=== PATIENT | female | born 1970 | race Caucasian/White ===

== ENCOUNTER 2020-05-24 20:50 | Inpatient (IN) | payer BC, SELFPAY ==
[~2020-05-24] VITALS: Ht 157.5 cm; Wt 81.6 kg
[2020-05-24 20:50] VITALS: BP 129/50
--- NOTE | 2020-05-24 20:50 | NUR ---
PT BIBA TO BED 05.
--- NOTE | 2020-05-24 20:55 | NUR ---
50 YO F BIBA WITH C/C OF SOB. EMT STATED O2 SAT AT 75% ON RA, THEY PLACED PT ON NONREBREATHER 15L, O2 SAT IN 90S. PT WAS TOLD SHE WAS COVID + 3DAYS AGO PER PT. PT STATED SHE HAD LIPO IN [place] [facility] ON . PT DENIES PAIN. +SORENESS DUE TO SURGERY. PT HAS A NONPROD COUGH, -FEVER, -CHILLS. PT PLACED IN GOWN, ON ELECTRIC ORGAN INSPECTOR AND REPAIRER AND PULSE OX. BED LOCKED IN LOWEST POSITION, SIDE RAILS X2. HX: HTN RX:CELEXA, METOPROLOL NKA
[2020-05-24 22:01] LABS: EOSINOPHILS % (AUTO) 0.2 % (0.0-4.0); HEMATOCRIT 26.2 % (36-48); HEMOGLOBIN 8.9 g/dL (12.0-16.0); LYMPHOCYTES # (AUTO) 0.4 K/uL (2.5-16.5); LYMPHOCYTES % (AUTO) 5.2 % (20.5-51.1); MEAN CORPUSCULAR HEMOGLOBIN 27 pg (27-31); MEAN CORPUSCULAR HGB CONC 34 g/dL (33-37); MEAN CORPUSCULAR VOLUME 79.3 fL (80-94); MONOCYTES # (AUTO) 0.2 K/uL (0.8-1.0); MONOCYTES % (AUTO) 2.5 % (1.7-9.3); NEUTROPHILS # (AUTO) 6.9 K/uL (1.8-7.7); NEUTROPHILS % (AUTO) 92.1 % (42.2-75.2); PLATELET COUNT (AUTO) 233 K/uL (140-450); WHITE BLOOD COUNT (AUTO) 7.5 K/uL (4.8-10.8)
[2020-05-24 22:20] LABS: ALBUMIN 2.2 g/dL (3.4-5.0); ANION GAP 10.6 (8-16); CARBON DIOXIDE 29.2 mmol/L (21-32); CREATININE 0.8 mg/dL (0.6-1.3); POTASSIUM 3.8 mmol/L (3.5-5.1); TOTAL BILIRUBIN 0.7 mg/dL (0.0-1.0)
--- NOTE | 2020-05-24 22:30 | NUR ---
PT IN STABLE CONDITION, EQUAL RISE AND FALL OF CHEST WALL. ATTEMPTED TO WEAN PT OFF O2, PT REFUSED STATED SHE IS SOB AND CANNOT HANDLE IT. PT IS SATING AT 97. BED LOCKED IN LOWEST POSITION, SIDE RAILS X2. PT ON GREASE REFINER OPERATOR AND PULSE OX.
[2020-05-25] MEDS ORDERED: DEXAMETHASONE 4 MG/ML VIAL IVP ONE (00:05)
--- NOTE | 2020-05-25 00:10 | NUR ---
ASSISTED PT TO BED SIDE COMMODE, PT DESATS DURING MOVEMENT TO 89%, RISES WHEN PT IS SITTING CALMLY TO 96%. ERMD MADE AWARE. ASSISTED PT BACK TO BED. ALL PT NEEDS MET AT THIS TIME. BED LOCKED IN LOWEST POSITION, SIDE RAILS X2. PT IN STABLE CONDITION.
--- NOTE | 2020-05-25 02:20 | NUR ---
PT IN STABLE CONDITION, EQUAL RISE AND FALL OF CHEST WALL. PT IS SLEEPING. ALL PT NEEDS MET AT THIS TIME. BED LOCKED IN LOWEST POSITION, SIDE RAILS X2. PT IN STABLE CONDITION.
[2020-05-25] MEDS ORDERED: PANTOPRAZOLE 40 MG TABEC PO ONE (02:55)
--- NOTE | 2020-05-25 04:15 | NUR ---
PT IS SLEEPING IN STABLE CONDITION, EQUAL RISE AND FALL OF CHEST WALL. ALL PT NEEDS MET AT THIS TIME. BED LOCKED IN LOWEST POSITION, SIDE RAILS X2.
--- NOTE | 2020-05-25 06:10 | NUR ---
ASSISTED PT TO BEDSIDE COMMODE AND BACK TO BED. ALL PT NEEDS MET AT THIS TIME. BED LOCKED IN LOWEST POSITION, SIDE RAILS X2. PT IN STABLE CONDITION.
[2020-05-25] MEDS ORDERED: ALBUTEROL HFA MDI 90 MCG/ACTUATION 8 GM INH ONE (06:25)
[2020-05-25] MEDS ORDERED: AZITHROMYCIN 250 MG TAB PO ONE (06:25)
[2020-05-25] MEDS ORDERED: cefTRIAXone 1,000 MG in LIDOCAINE MPF 1% 2.1 ML IM ONE (06:25)
[2020-05-25] MEDS ORDERED: cefTRIAXone 1,000 MG VIAL ONE ×2 (06:27→10:54)
[2020-05-25] MEDS ORDERED: LIDOCAINE MPF 1% 5 ML ONE (06:28)
[2020-05-25] MEDS ORDERED: METO50TE2 PO (07:03)
[2020-05-25] MEDS ORDERED: CITA20TA15 PO (07:03)
--- NOTE | 2020-05-25 07:10 | NUR ---
Recieved report from José Luis LACY. José Luis recieved auth#[id number] for admission. Verified with admitting pt to be admitted here. On-call attending contacted at this time.
--- NOTE | 2020-05-25 07:15 | NUR ---
REPORT GIVEN TO PALMIRA BUSTILLO. TRANSFER OF CARE AT THIS TIME.
[2020-05-25] MEDS ORDERED: AZITHROMYCIN 250 MG in DEXTROSE 5% 250 ML IV SCH (08:05)
[2020-05-25] MEDS: NACL 0.9% 1,000 ML IV SCH (09:00)
[2020-05-25] MEDS: ZINC SULF 220 MG CAP PO SCH ×2 (09:00→21:00)
[2020-05-25] MEDS ORDERED: LOVENOX 1MG/KG Q12H SUBQ SCH (09:00)
[2020-05-25] MEDS ORDERED: ONDANSETRON 4 MG/2 ML VIAL IM/IVP PRN (09:00)
[2020-05-25] MEDS: VITAMIN D 400 IU TAB PO SCH (09:00)
[2020-05-25] MEDS ORDERED: MORPHINE SULFATE 2 MG/ML SYR IVP PRN (09:00)
[2020-05-25] MEDS: ASCORBIC ACID 500 MG TAB PO SCH (09:00)
[2020-05-25] MEDS ORDERED: POTASSIUM CHLORIDE 10 MEQ TABER PO PRN (09:00)
[2020-05-25] MEDS ORDERED: ALBUTEROL HFA MDI 90 MCG/ACTUATION 8 GM INH PRN (09:00)
[2020-05-25] MEDS: AZITHROMYCIN 250 MG TAB PO SCH (09:00)
[2020-05-25] MEDS ORDERED: DOCUSATE SODIUM 100 MG GELCAP PO PRN (09:00)
[2020-05-25] MEDS ORDERED: HYDROcodone/APAP 5/325 MG 1 TAB TAB PO PRN (09:00)
[2020-05-25] MEDS ORDERED: ACETAMINOPHEN 325 MG TAB PO PRN (09:00)
[2020-05-25] MEDS ORDERED: MAG SULF 2000 MG/WATER PREMIX 50 ML IV PRN (09:00)
--- NOTE | 2020-05-25 09:15 | NUR ---
CONTACT NUMBER- DAUGHTER (FRANKIE): [phone]
--- NOTE | 2020-05-25 09:20 | NUR ---
NIKO SWAB DONE BY PALMIRA MILLER. SPECIMEN IN LAB.
--- NOTE | 2020-05-25 09:34 | NUR ---
MRSA SWAB DONE BY PALMIRA MILLER. WALKED TO LAB.
--- NOTE | 2020-05-25 09:42 | NUR ---
UNABLE TO PRODUCE URINE AT THIS TIME.
[2020-05-25 10:32] LABS: BASOPHILS % (AUTO) 0.1 % (0.0-2.0); HEMATOCRIT 25.6 % (36-48); HEMOGLOBIN 8.7 g/dL (12.0-16.0); LYMPHOCYTES # (AUTO) 0.5 K/uL (2.5-16.5); MEAN CORPUSCULAR HEMOGLOBIN 27 pg (27-31); MEAN CORPUSCULAR HGB CONC 34 g/dL (33-37); MEAN CORPUSCULAR VOLUME 79.9 fL (80-94); MONOCYTES # (AUTO) 0.2 K/uL (0.8-1.0); MONOCYTES % (AUTO) 2.5 % (1.7-9.3); NEUTROPHILS # (AUTO) 6.7 K/uL (1.8-7.7); NEUTROPHILS % (AUTO) 90.4 % (42.2-75.2); PLATELET COUNT (AUTO) 253 K/uL (140-450); RED CELL DISTRIBUTION WIDTH 14.9 % (11.6-13.7); WHITE BLOOD COUNT (AUTO) 7.4 K/uL (4.8-10.8)
[2020-05-25 10:48] LABS: ANION GAP 11.6 (8-16); CARBON DIOXIDE 27.9 mmol/L (21-32); CREATININE 0.7 mg/dL (0.6-1.3); POTASSIUM 3.5 mmol/L (3.5-5.1)
[2020-05-25 10:51] LABS: PROTHROMBIN TIME 10.7 secs (10.8-13.4)
[2020-05-25] MEDS ORDERED: ENOXAPARIN 40 MG/0.4 ML SYR SUBQ SCH (10:55)
[2020-05-25 11:02] LABS: CHOL/HDL RATIO 8.4 (1-4.5); PHOSPHORUS 3.7 mg/dL (2.5-4.9); THYROID STIMULATING HORMONE 0.71 uIU/mL (0.34-3.74)
--- NOTE | 2020-05-25 11:31 | NUR ---
UNABLE TO PRODUCE URINE AT THIS TIME.
[2020-05-25 15:21] LABS: BARBITURATE, URINE NEGATIVE ng/ml (NEG <=200); BENZODIAZEPINE, URINE NEGATIVE ng/mL (NEG <=200); CANNABINOID, URINE NEGATIVE ng/mL (NEG <=50); COCAINE, URINE NEGATIVE ng/mL (NEG <=300); OPIATE, URINE NEGATIVE ng/mL (NEG <=2000); PHENCYCLIDINE SCREEN,URINE NEGATIVE ng/mL (NEG <=25)
[2020-05-25 15:55] LABS: APPEARANCE,URINE CLEAR (CLEAR); BILIRUBIN,URINE NEGATIVE (NEGATIVE); BLOOD, URINE 2+ (NEGATIVE); COLOR,URINE YELLOW (YELLOW); LEUKOCYTE ESTERASE ,URINE NEGATIVE (NEGATIVE); NITRITE, URINE POSITIVE (NEGATIVE); UGLUCOSE NEGATIVE (NEGATIVE)
--- NOTE | 2020-05-25 15:58 | NUR ---
Patient will be admitted to care of DR CRAFT. Admited to TELE. Will go to room 105B. Belongings list completed. Report to PALMIRA SINGH.
--- NOTE | 2020-05-25 16:00 | NUR ---
RECEIVED REPORT FROM SELIN MOORE RN OVER THE PHONE, PATIENT WILL BE ARRIVE ON FLOOR SOON. PATIENT CURRENTLY ON 15L NRB O2 SAT 95%, STABLE.
[2020-05-25 16:30] VITALS: BP 110/65
--- NOTE | 2020-05-25 16:30 | NUR ---
PATIENT INFORMED TO BE ON THE FLOOR, PT RESTING IN BED, VS WNL. MRSA SCREENING DONE. VERBALIZED PLAN OF CAR,E SHE VERBALIZED UNDERSTANDING. ORIENTED PATIENT TO FLOOR, CALL LIGHT, BATHROOM, AND TV. SHE VERBALIZED UNDERSTANDING. DROPLET PRECAUTIONS IN PLACE, CALL LIGHT WITHIN REACH, WILL CONTINUE TO MONITOR PATIENT.
[2020-05-25 16:40] LABS: WBC,URINE 0-5 /HPF (0-5)
--- NOTE | 2020-05-25 17:15 | NUR ---
PT REPORTED PAIN IN CHEST, NO RADIATION, REPORTED FROM DEEP BREATHING. PRN PAIN MEDICATION GIVEN, PATIENT TOLERATED IT WELL. NO COMPLAINTS AT THIS TIME, CALL LIGHT WITHIN REACH, WILL CONTINUE TO MONITOR PATIENT.
--- NOTE | 2020-05-25 19:12 | NUR ---
REPORT GIVEN TO ELECTRONIC PARTS SALESPERSON NURSE. PATIENT IN STABLE CONDITION.
--- NOTE | 2020-05-25 19:13 | NUR ---
RECEIVED BEDSIDE REPORT FROM DAY RN. PT IS OCCITAN/[place] SPEAKING. PT IS AAOX4. RESPIRATIONS ARE EQUAL AND LABORED. PT IS COVID POS. RR 24 SAT 88% ON 15L NRB. SKIN NON INTACT. S/P LIPOSUCTION 7 INCISIONS DRESSING IS SOILED AT ABD. WILL DO WOUND CARE. ABD IS ROUND AND SOFT. BOWEL SOUNDS ACTIVE X4. LBM TODAY. IV ON RAC NS INFUSING AT 60ML/H. POC DISCUSSED WITH PT. ON FALL PRECAUTION. CALL LIGHT IS WITHIN REACH. WILL CONTINUE TO MONITOR.
[2020-05-25 20:00] VITALS: BP 99/55
[2020-05-25] MEDS ORDERED: AZITHROMYCIN 500 MG INJ VIAL IV ONE (20:54)
[2020-05-25] MEDS ORDERED: ZOLPIDEM 5 MG TAB PO PRN (21:00)
--- NOTE | 2020-05-25 21:00 | NUR ---
VSS. LUNG SOUNDS DIMINISHED AT BASE. PT ON 15L VIA NRB RR 24 RESPIRATIONS ARE EQUAL AND LABORED. ENCOURAGE LAY ON SIDE. O2 BETWEEN 86-89%. ENCOURAGE ON DEEP BREATHING. ALVINO MEDICATION GIVEN PER ORDERS. IV ZITHRO NOW INFUSING PER ORDERS. POC DISCUSSED WITH PT. CALL LIGHT IS WITHIN REACH. UNABLE TO DO ADMISSION ASSESSMENT D/T PT INCREASED RESPIRATORY DISTRESS WHEN TALKING. PT WITH 7 SURGICAL INCISION S/P LIPOSUCTION X 1 MO AGO DRESSING SOILED. WILL TAKE PICTURES ONCE PT O2 SAT STABLE. WILL CONTINUE TO MONITOR.
[2020-05-25] MEDS ORDERED: PROMETHAZINE DM 6.25/15MG-5ML ORASYR PO PRN (23:30)
--- NOTE | 2020-05-25 23:48 | NUR ---
PT S/P LIPOSUCTION DONE IN [place] IN APRIL PER PT. PT WITH 7 INCISIONS. R/L AXILLA APPROXIMATED WITH SUTURES, SOME FALLEN ALREADY MING. R/L NIPPLE DRESSING WAS CHANGED WITH QUATER SIZE GREEN/YELLOW DRAINAGE NOTED. UMBILICAL WITH QUATER SIZE OF GREEN/YELLOW DRAINAGE. MID LOWER ABDOMEN OPEN WOUND 3X1.4X 0.1 WOUND BED YELLOW WITH MODERATE YELLOW DRAINAGE. LARGE MID ABD HORIZONTAL SURGICAL INCISION MING. WITH [address] WOUND EDUCATION GIVEN. CALL LIGHT IS WITHIN REACH.
[2020-05-26] VITALS (7 sets, daily range): BP systolic 93–131; BP diastolic 53–67
--- NOTE | 2020-05-26 | NUR ---
PT WITH INCREASED SOB SAT 85% RR 26 ON 15L NRB RT NOTIFIED. WILL CONTINUE TO MONITOR.
[2020-05-26] MEDS ORDERED: PROMETHAZINE 25 MG TAB PO PRN (00:25)
--- NOTE | 2020-05-26 00:30 | NUR ---
PT SAT 30-93% ON NRB 15L RR 22. ALL NEEDS MET. CALL LIGHT IS WITHIN REACH. Addendum: 05/26/20 at 2319 by Marti Brooke RN O2 SAT 88-93%
--- NOTE | 2020-05-26 02:25 | NUR ---
O2 SAT 75% RR 30 CALLED RT. PLACED PT ON H FLOW 40L & REMAIN 15L VIA NRB. PT PRONE RR 25 SAT 91%. WILL CONTINUE TO MONITOR CLOSELY. CALL LIGHT IS WITHIN REACH.
[2020-05-26] MEDS: NACL 0.9% 1,000 ML IV SCH ×2 (02:26→18:45)
--- NOTE | 2020-05-26 02:30 | NUR ---
CALLED TO BEDSIDE DUE TO PT DESATURATING. SPO2 IN HIGH 70s. PLACED PT ON HFNC 40L AND FiO2 100% PLUS NRB MASK. SPO2 IS 92%. PT IS TOLERATING HFNC WELL. RN AT BEDSIDE. WILL CONTINUE TO MONITOR PT. Addendum: 05/26/20 at 0235 by Teofilo Martinez RT ASSISTED PT INTO PRONE POSITION. PT TOLERATED PROCEDURE WELL.
--- NOTE | 2020-05-26 04:00 | NUR ---
SAT 90% ON H FLOW 40L AND NRB 15L. RR 24. PT REMAINS PRONE POSITION. WILL CONTINUE TO MONITOR.
--- NOTE | 2020-05-26 07:30 | NUR ---
GAVE BEDSIDE REPORT TO DAY RN. PT ENDORSED IN STABLE CONDITION.
--- NOTE | 2020-05-26 07:32 | NUR ---
RECEIVED REPORT FROM NIGHT NURSE PATIENT IS AAOX4 ON 15LPM NON RE BREATHER MASK HIGHFLOW 40L FULL CODE, IV INTACT AND PATENT ON RIGHT FOREARM SKIN NON INTACT, SAFETY MEASURES IN PLACE AND CALL LIGHT WITHIN REACH. WILL CONTINUE TO MONITOR.
--- NOTE | 2020-05-26 09:30 | NUR ---
MEDICATION DUE GIVEN AND CHECK VITAL SIGNS PRIOR TO MEDICATION PATIENT BLAINE AT 79% DR DOTY.
[2020-05-26 09:36] LABS: BASOPHILS % (AUTO) 0.1 % (0.0-2.0); HEMATOCRIT 23.2 % (36-48); HEMOGLOBIN 7.8 g/dL (12.0-16.0); LYMPHOCYTES # (AUTO) 0.6 K/uL (2.5-16.5); MEAN CORPUSCULAR HEMOGLOBIN 27 pg (27-31); MEAN CORPUSCULAR HGB CONC 34 g/dL (33-37); MEAN CORPUSCULAR VOLUME 79.8 fL (80-94); MONOCYTES # (AUTO) 0.3 K/uL (0.8-1.0); MONOCYTES % (AUTO) 3.2 % (1.7-9.3); NEUTROPHILS # (AUTO) 8.9 K/uL (1.8-7.7); NEUTROPHILS % (AUTO) 90.7 % (42.2-75.2); PLATELET COUNT (AUTO) 242 K/uL (140-450); RED CELL DISTRIBUTION WIDTH 15.1 % (11.6-13.7); WHITE BLOOD COUNT (AUTO) 9.8 K/uL (4.8-10.8)
[2020-05-26] MEDS: VITAMIN D 400 IU TAB PO SCH (09:56)
[2020-05-26] MEDS: CITALOPRAM 20 MG TAB PO SCH (09:56)
[2020-05-26] MEDS: METOPROLOL SUCCINATE 50 MG TABER PO SCH (09:57)
[2020-05-26] MEDS: ASCORBIC ACID 500 MG TAB PO SCH (09:57)
[2020-05-26] MEDS: AZITHROMYCIN 250 MG TAB PO SCH (09:58)
[2020-05-26 10:10] LABS: ANION GAP 11.7 (8-16); CREATININE 0.6 mg/dL (0.6-1.3); MAGNESIUM 2.2 mg/dL (1.8-2.4); PHOSPHORUS 3.1 mg/dL (2.5-4.9); POTASSIUM 3.7 mmol/L (3.5-5.1); TOTAL BILIRUBIN 0.4 mg/dL (0.0-1.0)
[2020-05-26] MEDS: ENOXAPARIN 40 MG/0.4 ML SYR SUBQ SCH (10:11)
[2020-05-26] MEDS ORDERED: DEXAMETHASONE 10 MG/ML VIAL IVP SCH (10:40)
[2020-05-26] MEDS ORDERED: remdesivir COMMUNICATION ORDER 1 EA MISC MC PRN (10:40)
[2020-05-26] MEDS ORDERED: remdesivir CLINICAL MONITORING 1 EA MISC MC PRN (10:50)
[2020-05-26] MEDS: ZINC SULF 220 MG CAP PO SCH ×2 (10:59→20:03)
--- NOTE | 2020-05-26 11:02 | NUR ---
PATIENT HAS BEEN SCREENED AND CATEGORIZED MODERATE NUTRITION RISK. PATIENT WILL BE SEEN WITHIN 3-5 DAYS OF ADMISSION. 05/28/20 - 05/30/20 JARED CORREA MBA, RUTH FNS CONSULT RECEIVED; N/A.
--- NOTE | 2020-05-26 11:30 | NUR ---
PATIENT SATURATION LEVEL WAS 48-55% CALLED RT TO ASSESS PATIENT.
--- NOTE | 2020-05-26 12:00 | NUR ---
PATIENT WAS PUT ON BIPAP AT 100% AND SATURATION LEVEL AT 86-90%. PT IS STABLE.
--- NOTE | 2020-05-26 12:13 | NUR ---
PAGED DR. RAMAN PADGETT [phone] TO [facility] SAMPLE REPORT
[2020-05-26] MEDS ORDERED: REMDESIVIR (EUA) 200 MG in NACL 0.9% 100 ML IV SCH (13:00)
--- NOTE | 2020-05-26 14:00 | NUR ---
MADE ROUNDS AT THIS TIME PATIENT UNABLE TO EAT AND STABLE.
--- NOTE | 2020-05-26 18:00 | NUR ---
MADE ROUNDS PATIENT IS STABLE SATURATION AT 83% ABLE TO DRINK WATER.
--- NOTE | 2020-05-26 19:30 | NUR ---
RECEIVED BEDSIDE REPORT FROM DAY RN. PT IS INDONESIAN/IRISH SPEAKING. PT IS AAOX3. VERY LETHARGIC. RESPIRATIONS ARE EQUAL AND LABORED. ACCESSORY MUSCLES BEING USED PT ON BIPAP FIO2 100% IPAP 10, EPAP 10 RR SET 10 PT IS SAT BETWEEN 82-84% RR 29 ENCOURAGE PRONING. PT NOD HEAD WILL FIND ASSISTANCE TO PRONE PT. PT IS COVID POS. SKIN NON INTACT. S/P LIPOSUCTION 7 INCISIONS VICTORINA AXILLARY DATAWAREHOUSE DEVELOPER, VICTORINA BREAST DRESSING ARE C/D/I. UMBICAL DRESSING IS C/D/I. MID ABD DRESSING IS C/D/I. ABD IS ROUND AND SOFT. BOWEL SOUNDS ACTIVE X4. LBM TODAY. IV ON RAC NS INFUSING AT 60ML/H. POC DISCUSSED WITH PT. ON FALL PRECAUTION. CALL LIGHT IS WITHIN REACH. WILL CONTINUE TO MONITOR.
--- NOTE | 2020-05-26 19:40 | NUR ---
ENDORSED TO NIGHT NURSE
--- NOTE | 2020-05-26 20:03 | NUR ---
PT O2 SAT BETWEEN 77-80% ON BIAPA FIO2 100%. PRONE PT WITH ASSISTANCE OF SQL ENGINEER. AFTER A COUPLE MINUTES O2 SAT UP TO 88-90% RR 28. WILL CONTINUE TO MONITOR CLOSELY.
--- NOTE | 2020-05-26 22:00 | NUR ---
PATIENT REMAINS PRONE POSITION RT AT BEDSIDE. SAT 90% RR 26. PT RESTING IN BED WITH EQUAL LABORED BREATHING. EYES CLOSED EASILY AROUSABLE TO NAME. ALL NEEDS MET. CALL LIGHT IS WITHIN REACH. WILL CONTINUE TO MONITOR.
[2020-05-27] VITALS: BP 105/64
--- NOTE | 2020-05-27 | NUR ---
PT REMAINS IN PRONE POSITION RR HIGH 28 SAT 91%. ENCOURAGE TO REMAIN PRONE PT NOD UNDERSTANDING. CALL LIGHT IS WITHIN REACH.
--- NOTE | 2020-05-27 02:23 | NUR ---
PT COMPLAIN OF GEN PAIN 10/ MEDICATED WITH PRN MORPHINE. PT LAYING ON SIDE SAT 95% ON BIPAP RR 30. ENCOURAGE PT TO PRONE PT STATES LATER. EDUCATED ON IMPORTANCE OF PRONING PT NOD HEAD YES. WILL ATTEMPT AGAIN LATER. CALL LIGHT IS WITHIN REACH.
[2020-05-27 04:00] VITALS: BP 105/64
[2020-05-27] MEDS: LORazepam 2 MG/ML VIAL IM/IVP PRN ×2 (05:23→12:42)
--- NOTE | 2020-05-27 05:23 | NUR ---
RR HIGH 33 PT WITH LABORED BREATHING SAT 80% PT PLACED PRONE AGAIN AND EDUCATED PT TO REMAIN PRONE O2 SAT 88% RR 30 ADMINISTERED PRN ATIVAN IVP FOR ANXIETY. CALL LIGHT IS WITHIN REACH. WILL CONTINUE TO MONITOR.
--- NOTE | 2020-05-27 06:42 | NUR ---
PT LEFT ON BIPAP RECEIVED ON 29/03 f10 100%
--- NOTE | 2020-05-27 07:30 | NUR ---
GAVE BEDSIDE REPORT TO DAY RN. PT ENDORSED IN STABLE CONDITION.
[2020-05-27 08:00] VITALS: BP 102/55
[2020-05-27] MEDS ORDERED: FERROUS SULFATE 325 MG TABEC PO SCH (08:00)
[2020-05-27 08:07] LABS: FERRITIN 729 ng/mL (15-150)
[2020-05-27] MEDS: VITAMIN D 400 IU TAB PO SCH (08:35)
[2020-05-27] MEDS: ZINC SULF 220 MG CAP PO SCH (08:35)
[2020-05-27] MEDS: CITALOPRAM 20 MG TAB PO SCH (08:35)
[2020-05-27] MEDS: ASCORBIC ACID 500 MG TAB PO SCH (08:35)
[2020-05-27] MEDS: AZITHROMYCIN 250 MG TAB PO SCH (08:36)
[2020-05-27] MEDS: ENOXAPARIN 40 MG/0.4 ML SYR SUBQ SCH (08:38)
[2020-05-27] MEDS: METOPROLOL SUCCINATE 50 MG TABER PO SCH (08:41)
[2020-05-27] MEDS ORDERED: DEXAMETHASONE 4 MG/ML VIAL IVP SCH (09:00)
[2020-05-27] MEDS ORDERED: DEXAMETHASONE 10 MG/ML VIAL IVP SCH (09:00)
[2020-05-27 09:13] LABS: T4 (THYROXINE) 9.6 ug/dL (4.5-12.0)
--- NOTE | 2020-05-27 09:15 | NUR ---
SCHEDULED MORNING MEDICATIONS GIVEN, PATIENT'S O2 DESATURATED TO 60S WHILE OFF THE BIPAP. RT CALLED. O2 SAT WENT BACK TO 86%, RR 38. ENCOURAGED PATIENT TO RELAX AND TAKE DEEP BREATH. PATIENT IN PRONE POSITION. REPORT TO DR. CRAFT, WILL CONTINUE TO CLOSELY TO MONITOR.
[2020-05-27 10:15] LABS: HEMATOCRIT 24.6 % (36-48); HEMOGLOBIN 8.1 g/dL (12.0-16.0); MEAN CORPUSCULAR HEMOGLOBIN 27 pg (27-31); MEAN CORPUSCULAR HGB CONC 33 g/dL (33-37); MEAN CORPUSCULAR VOLUME 81.2 fL (80-94); NEUTROPHILS % (AUTO) 88.7 % (42.2-75.2); PLATELET COUNT (AUTO) 276 K/uL (140-450); RED BLOOD CELL COUNT(AUTO) 3.04 MIL/uL (4.20-5.40); RED CELL DISTRIBUTION WIDTH 15.2 % (11.6-13.7); WHITE BLOOD COUNT (AUTO) 11.1 K/uL (4.8-10.8)
[2020-05-27 10:16] LABS: BASOPHILS % (AUTO) 0.2 % (0.0-2.0); LYMPHOCYTES # (AUTO) 0.8 K/uL (2.5-16.5); LYMPHOCYTES % (AUTO) 6.8 % (20.5-51.1); MONOCYTES # (AUTO) 0.5 K/uL (0.8-1.0); MONOCYTES % (AUTO) 4.3 % (1.7-9.3); NEUTROPHILS # (AUTO) 9.8 K/uL (1.8-7.7)
--- NOTE | 2020-05-27 10:50 | NUR ---
WOUND CARE ASSESSMENT STARTED BUT UNABLE TO FINISHED, PT. IS ON BIPAP WITH 02 DE SAT TO 68%, PRIMARY RN NOTIFIED RIGHT AWAY, ONLY ABLE TO CHANGE THE SOILED DRESSING TO ABDOMINAL WOUNDS AT THIS TIME.WILL ASSESS PT. WOUNDS WHEN PT. IS STABLE. WILL REVIEW PHOTO DOCUMENTATIONS AND NURSING PROTOCOLS FOR WOUND CARE AT THIS TIME. POC DISCUSSED WITH PRIMARY RN.
--- NOTE | 2020-05-27 11:01 | NUR ---
SN WAS INFORMED BY THE WOUND CARE NURSE SIMONE THAT PATIENT'S O2 SAT DESATURATED TO 60S AFTER THE WOUND DRESSING CHANGE. RT CALLED. WILL CHECK ON THE PATIENT.
[2020-05-27 11:14] LABS: ANION GAP 12.7 (8-16); CARBON DIOXIDE 28.5 mmol/L (21-32); CREATININE 0.7 mg/dL (0.6-1.3); POTASSIUM 4.2 mmol/L (3.5-5.1); TOTAL BILIRUBIN 0.4 mg/dL (0.0-1.0)
[2020-05-27 11:15] LABS: MAGNESIUM 1.9 mg/dL (1.8-2.4); PHOSPHORUS 3.4 mg/dL (2.5-4.9)
--- NOTE | 2020-05-27 11:18 | NUR ---
POSITION CHANGED TO PRONE POSITION. RT STILL WITH THE PATIENT. DR. SOLANO WAS INFORMED THAT PATIENT'S CONDITION. INTUBATION MAY CONSIDER IF PATIENT'S O2 SAT STILL BE LOW.
[2020-05-27 12:00] VITALS: BP 142/76
--- NOTE | 2020-05-27 12:13 | NUR ---
CHECKED PATIENT. O2 SAT 68% WITH BIPAP. INFORMED PATIENT TO RELAX AND TAKE DEEP BREATHE. PATIENT IS ABLE TO RESPONSE. RT CALLED, TONYA WILL COME TO CHECK ON THE PATIENT.
[2020-05-27] MEDS: NACL 0.9% 1,000 ML IV SCH (12:42)
--- NOTE | 2020-05-27 12:42 | NUR ---
ATIVAN GIVEN BY IVP FOR ANXIETY. EDUCATION PROVIDED. PATIENT'S DAUGHTER AND OUTSIDE OF THE HOSPITAL SEE THROUGH THE WINDOW. EXPLAINED AND UPDATED PATIENT'S CONDITION. PATIENT WAS INFORMED THAT FAMILY OUTSIDE. WILL CONTINUE TO MONITOR.
[2020-05-27] MEDS ORDERED: REMDESIVIR (EUA) 100 MG in NACL 0.9% 100 ML IV SCH (13:00)
--- NOTE | 2020-05-27 13:10 | NUR ---
CHECKED PATIENT. O2 SAT 66-71% WITH BIPAP. RT CASTANEDA CALLED AND CAME TO CHECK ON THE PATIENT. CHECKED THE PATIENT AND REPOSE THE PATIENT. ABG ORDERED, WILL FOLLOW UP.
--- NOTE | 2020-05-27 14:55 | NUR ---
PATIENT WAS FOUND IN SUPINE POSITION. O2 SAT 62% WITH BIPAP. RT TONYA CALLED. PER TONYA. INTUBATION NEEDED AND DISCUSSING AND NOTHING HE CAN DO NOW. PATIENT IS ABLE TO FOLLOW COMMAND. PATIENT TURNED TO LEFT SIDE AND ENCOURAGED TO TAKE SOME DEEP BREATH. O2 SAT INCREASED TO 73%, WILL CONTINUE TO MONITOR.
[2020-05-27] MEDS ORDERED: ETOMIDATE 20 MG/10 ML VIAL IVP ONE (15:42)
[2020-05-27] MEDS ORDERED: PROPOFOL 1000 MG/100 ML PREMIX 100 ML IV ONE (15:43)
--- NOTE | 2020-05-27 15:43 | NUR ---
SOCIAL WORK NOTE: SW WAS UNABLE TO MEET PATIENT AT BEDSIDE DUE TO MEDICAL CONDITION. SW LEFT PATIENT VM [phone] TO COMPLETE ASSESSMENT. SYDNIE CONTACTED ROOM PHONE AND RN FOR EMERGENCY CONTACTS BUT NONE WERE AVAILABLE.
--- NOTE | 2020-05-27 15:50 | NUR ---
KIM TOOK OVER THE PATIENT. WILL UNDER INTUBATION PROCEDURE.
--- NOTE | 2020-05-27 15:53 | NUR ---
ED MD intubated patient at bedside, 20mg of Etomidate and 100 of Rocuronium given IVP. Propofol initated for sedation per MD Order. ETT placed, 23cm at the lip. Size 7.5.
[2020-05-27] MEDS ORDERED: ROCURONIUM 50 MG/5 ML VIAL IV ONE (15:57)
--- NOTE | 2020-05-27 16:18 | NUR ---
pt O2 sat 41% s/p intubation and on 100% fio2, 103/68bp, HR 120, sinus tach. vent setting are 450Vt, rate 16, peep 10. RT at bedside.
--- NOTE | 2020-05-27 16:28 | NUR ---
DC PLANN[age] YRS OLD FEMALE PATIENT WAS ADMITTED FROM HOME WITH A DX OF HYPOXIA, COVID AND RESP FAILURE. PT HAS HAS NO MEDICAL HX . CXR SHOWED BILATERAL PNEUMONIA. RAPID COVID TEST POSITIVE. STARTED COVID PROTOCOL , IV RAMDESIVIR, DECADRON IVP ,ROCEPHIN AND AZITHROMYCIN IV ABX. CURRENTLY PT IS ON BIPAP SATING 90% AND FIO2 100%. CONSULTED WITH ID AND PULMO CM TO FOLLOW.
[2020-05-27] MEDS ORDERED: PROPOFOL 1000 MG/100 ML PREMIX 100 ML IV PRN (16:55)
--- NOTE | 2020-05-27 17:26 | NUR ---
WAS INFORMED BY DENIES THAT PATIENT AT 1705, FAMILY WAS INFORMED BY DENIES. AND REQUIRE SN TO CALL THE [facility]NER AND [facility]. WILL FOLLOW.
--- NOTE | 2020-05-27 17:28 | NUR ---
REACHED [facility]. [phone], INFORMED PATIENT'S AND INFO, WAS TOLD WILL CALL BACK.
--- NOTE | 2020-05-27 18:31 | NUR ---
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
--- NOTE | 2020-05-27 18:34 | NUR ---
[facility] CALLED. [phone], CASE NUMBER RECEIVED [id number].
--- NOTE | 2020-05-27 21:59 | NUR ---
Talked to daughter she said she will call [facility], per daughter she is number [phone] in the call
--- NOTE | 2020-05-27 23:13 | NUR ---
PER DAUGHTER THEY ARE STILL WAITING FOR [facility] INSTRUCTION, MADE AWARE BODY WILL BE PUT IN THE TRAILER ( [employer] FOR NOW.
[2020-05-27 23:18] LABS: TRANSFERRIN 133 mg/dL (192-364)
--- NOTE | 2020-05-27 23:45 | NUR ---
TALKED TO JEREMIAH FROM [facility], THEY ARE COMING SHORTLY TO GANG INVESTIGATOR THE BODY
--- NOTE | 2020-05-28 01:49 | NUR ---
picked up by [facility] guest relations representative, assisted by security, daughter aware
== END 2020-05-27 17:30 | disposition expired | DRG 177 ==
LOC: MED 20:50 → MTU 05-25 08:10
PROC: 5A09357 Assistance with Respiratory Ventilation, Less than 24 Consecutive Hours, Continuous Positive Airway Pressure (ICD-10-PCS; principal; 2020-05-26)
PROC: XW033E5 Introduction of Remdesivir Anti-infective into Peripheral Vein, Percutaneous Approach, New Technology Group 5 (ICD-10-PCS; 2020-05-26)
PROC: 5A0935A Assistance with Respiratory Ventilation, Less than 24 Consecutive Hours, High Flow/Velocity Cannula (ICD-10-PCS; 2020-05-26)
PROC: 0BH17EZ Insertion of Endotracheal Airway into Trachea, Via Natural or Artificial Opening (ICD-10-PCS; 2020-05-27)
DX: U07.1 COVID-19 (principal); J12.89 Other viral pneumonia; J96.01 Acute respiratory failure with hypoxia; E43 Unspecified severe protein-calorie malnutrition; Z66 Do not resuscitate; I10 Essential (primary) hypertension; E66.9 Obesity, unspecified; F32.9 Major depressive disorder, single episode, unspecified; D50.9 Iron deficiency anemia, unspecified; R74.01 Elevation of levels of liver transaminase levels; Z68.32 Body mass index [BMI] 32.0-32.9, adult
CPT/HCPCS: 36415; 36600; 71045; 80048; 80053; 80305; 81001; 82150; 82607; 82728; 82746; 82803; 83036; 83540; 83605; 83615; 83690; 83735; 83880; 84100; 84134; 84436; 84443; 84484; 85025; 85045; 85379; 85610; 85651; 85730; 86140; 86886; 86900; 86901; 87081; 94660; 94664; 96372; 96374; 99291; J0456; J0696; J1100; J1650; J2001; J2060; J2270; J2704; J3490; J7060